=== PATIENT | female | born 1990 | race Caucasian/White ===

== ENCOUNTER 2017-09-21 23:15 | Inpatient (IN) | payer OTHER ==
[~2017-09-21] VITALS: Ht 157.5 cm; Wt 76.2 kg
[2017-09-22] VITALS (169 sets, daily range): BP systolic 87–144; BP diastolic 43–84; PULSE 68–143; RESP 15–18; TEMP 97.9–98.7; O2SAT 97–100
[2017-09-22 00:04] LABS: BLOOD, URINE NEG (NEG); COMMENT (UR) CULT NOT INDICATED; CULTURE IF INDICATED CULT NOT INDICATED; GLUCOSE,URINE NEG (NEG); KETONE, URINE NEG (NEG); MUCUS URINE FEW /lpf (OCC); NITRITE,URINE NEG (NEG); SQUAMOUS EPITHELIAL CELL URINE <1 /hpf (0-5); URINE COLOR LIGHT-YELLOW (YELLW/STRAW)
[2017-09-22] MEDS ORDERED: LACTATED RINGER'S 1000 ML INJ 1,000 ML IV PRN (00:14)
--- NOTE | 2017-09-22 00:14 | PD ---
HPI Chief Complaint Contractions since exam this morning Date Seen: Sep 22, 2017 Time Seen: 00:11 Travel History International Travel<30 Days: No Contact w/Intl Traveler<30Days: No Known Affected Area: No History of Present Illness HPI 27-year-old who is at 39 weeks and 6 days comes in complaining of contractions since her examination this morning. She was in the office and was noted to be 4 cm and since that exam has been yuan most of the today which worsened this evening and is now every 5 minutes. Denies vaginal bleeding discharge or rupture membranes. She is group B strep negative and denies any antepartum complications Weeks Gestation: 39 (39.6) Para: 0 : 1 History Past Medical History Medical History: Denies Significant Hx Past Surgical History Narrative Surgical Bilateral inguinal hernia repair Family History Family History: Negative Social History Alcohol Use: No Tobacco Use: No Substance Abuse: No Allergies-Medications (Allergen,Severity, Reaction): Coded Allergies: No Known Drug Allergies (Verified Allergy, Unknown, 09/21/17) Review of Systems Except as stated in HPI: all other systems reviewed are Neg Physical Exam Narrative GENERAL: Well-nourished, well-developed patient. SKIN: Warm and dry. HEAD: Normocephalic and atraumatic. EYES: No scleral icterus. No injection or drainage. ENT: No nasal drainage noted. Mucous membranes pink. Airway patent. NECK: Supple, trachea midline. No JVD. CARDIOVASCULAR: Regular rate and rhythm without murmurs, gallops, or rubs. RESPIRATORY: Breath sounds equal bilaterally. No accessory muscle use. ABDOMEN/GI: Abdomen soft, non-tender, bowel sounds present, no rebound, no guarding Gravid to [40-] weeks size Fundal Height: [-] GENITOURINARY: External Genitalia: intact and normal in appearance BUS glands: [-Normal] Cervix: [-Mid position] Dilatation: [5-] Effacement: [-80] Station: [-2-] Presentation: [-Vertex] Membranes: [intact ] Uterine Contractions: [Every 3-5-] FHT's: Category: [1-] Baseline: [-140] Reactive: [Moderate-] Variability: [-Moderate] Decels: [-Absent] EXTREMITIES: No cyanosis or edema. BACK: Nontender without obvious deformity. No CVA tenderness. NEUROLOGICAL: Awake and alert. Motor and sensory grossly within normal limits. Five out of 5 muscle strength in all muscle groups. Normal speech. Data Data Vital Signs Reviewed: Yes Orders Orders Urinalysis - C+S If Indicated (09/21/17 23:53) Drug Screen, Random Urine (09/21/17 23:53) Group B Strep: Negative Labs Laboratory Tests Test 09/21/17 23:38 Urine Color LIGHT-YELLOW Urine Turbidity CLEAR Urine pH 7.0 Urine Specific [place] 1.013 Urine Protein NEG Urine Glucose (UA) NEG Urine Ketones NEG Urine Occult Blood NEG Urine Nitrite NEG Urine Bilirubin NEG Urine Urobilinogen LESS THAN 2.0 Urine Leukocyte Esterase TRACE Urine RBC 1 Urine WBC 2 Urine Squamous Epithelial Cells <1 Urine Mucus FEW Microscopic Urinalysis Comment CULT NOT INDICATED MDM Medical Record Reviewed: Yes Plan 27-year-old at 39 weeks and 6 days with G group B strep negative in active labor Admit to labor delivery Diagnosis Diagnosis: Primary Impression: 39 weeks gestation of Additional Impression: Irregular uterine contractions Nadege Perez MD Sep 22, 2017 00:14
[2017-09-22] MEDS ORDERED: CITRIC ACID-SODIUM CITRATE LIQ 30 ML UDC PO SCH (00:15)
[2017-09-22] MEDS ORDERED: LIDOCAINE HCL 1% 50 ML VIAL I-DERMAL PRN (00:15)
[2017-09-22] MEDS ORDERED: LIDOCAINE HCL 1% 50 ML VIAL INFIL PRN (00:15)
[2017-09-22] MEDS ORDERED: SODIUM CHLORID 0.9% 500 ML INJ 500 ML IV PRN (00:15)
[2017-09-22] MEDS ORDERED: OXYTOCIN 30 UNITS-500ML PREMIX 500 ML IV ONE (00:15)
[2017-09-22] MEDS ORDERED: MINERAL OIL 10 ML VIAL TOPICAL PRN (00:15)
[2017-09-22] MEDS ORDERED: SODIUM CHLOR 0.9% 1000 ML INJ 1,000 ML IV PRN (00:34)
[2017-09-22] MEDS: ONDANSETRON HCL 4 MG/2 ML VIAL IV PUSH PRN ×3 (00:39→15:04)
[2017-09-22] MEDS: LACTATED RINGER'S 1000 ML INJ 1,000 ML IV SCH ×2 (00:40→15:05)
[2017-09-22 00:43] LABS: AUTOMATED NEUTROPHIL # 9.8 TH/MM3 (1.8-7.7); BASOPHIL # 0.1 TH/MM3 (0-0.2); BASOPHIL % 0.5 % (0.0-2.0); EOSINOPHIL # 0.1 TH/MM3 (0-0.4); EOSINOPHIL % 0.6 % (0.0-4.0); HEMATOCRIT 41.1 % (35.0-46.0); HEMO FLAGS DIFF FINAL; LYMPH % 16.5 % (9.0-44.0); LYMPHOCYTE # 2.1 TH/MM3 (1.0-4.8); MEAN CELL VOLUME 89.6 FL (80.0-100.0); MEAN CORPUSCULAR HEMOGLOBIN 30.1 PG (27.0-34.0); MEAN CORPUSCULAR HGB CONC 33.5 % (32.0-36.0); MONO % 7.4 % (0.0-8.0); PLATELET COUNT 309 TH/MM3 (150-450); RED BLOOD COUNT 4.59 MIL/MM3 (4.00-5.30); WHITE BLOOD COUNT 13.1 TH/MM3 (4.0-11.0)
[2017-09-22] MEDS ORDERED: Prenatal Vitamin PO (00:44)
[2017-09-22] MEDS ORDERED: PROT40TA PO (00:44)
[2017-09-22] MEDS ORDERED: COLA100C5 PO (00:44)
[2017-09-22] MEDS ORDERED: fentaNYL 2MCG-BUPIV 0.125% INJ 100 ML ONE (03:36)
[2017-09-22] MEDS ORDERED: DO NOT ADMINISTER ANTICOAGULANTS PRN (04:00)
[2017-09-22] MEDS ORDERED: fentaNYL 2MCG-BUPIV 0.125% 100 ML EPIDURAL SCH (04:00)
[2017-09-22] MEDS ORDERED: NO SYSTEM NARCOTICS PRN (04:00)
[2017-09-22] MEDS ORDERED: ePHEDrine/NS 25 MG/5 ML SYRINGE IV PUSH PRN (04:15)
[2017-09-22] MEDS ORDERED: OXYTOCIN 30 UNITS/NS 500ML PREMIX IV SCH (09:00)
[2017-09-22] MEDS ORDERED: OXYTOCIN 30 UNITS-500ML PREMIX 500 ML IV SCH (15:00)
[2017-09-22] MEDS ORDERED: ACETAMINOPHEN 325 MG TAB PO PRN (15:00)
[2017-09-22] MEDS ORDERED: ONDANSETRON ODT 4 MG TAB PO PRN (15:00)
[2017-09-22] MEDS ORDERED: ALUMINUM/MAGNESIUM/SIMETH 30 ML CUP PO PRN (15:00)
[2017-09-22] MEDS ORDERED: DISCONTINUE ALL PREVIOUS ORDERS ONE (15:00)
[2017-09-22] MEDS ORDERED: oxyCODONE/ACETAMINOPHEN 5 MG/325 MG 2 TABS PO PRN (15:00)
[2017-09-22] MEDS ORDERED: BENZOCAINE 20% TOPICAL SPRAY 60 ML CAN TOPICAL PRN (15:00)
[2017-09-22] MEDS: oxyCODONE/ACETAMINOPHEN 5 MG/325 MG TAB PO PRN ×2 (15:05→22:01)
[2017-09-22] MEDS: WITCH HAZEL 50%/GLYCERIN 12.5% 40 PAD JAR TOPICAL PRN (15:05)
[2017-09-22] MEDS ORDERED: DIPHTH/TETANUS/ACEL PERTUSSIS (BOOSTER) 0.5 ML VIAL/PFS IM ONE (16:00)
[2017-09-22] MEDS ORDERED: MEASLES, MUMPS, RUBELLA VACCINE 0.5 ML VIAL SQ ONE (16:00)
[2017-09-22] MEDS: IBUPROFEN 800 MG TAB PO PRN (17:57)
[2017-09-22] MEDS ORDERED: ZOLPIDEM TARTRATE 5 MG TAB PO PRN (21:00)
[2017-09-23] MEDS: oxyCODONE/ACETAMINOPHEN 5 MG/325 MG TAB PO PRN ×3 (02:28→18:41)
[2017-09-23] MEDS: DOCUSATE SODIUM 50 MG/SENNA 8.6 MG TAB PO PRN ×2 (02:31→18:43)
[2017-09-23] MEDS: IBUPROFEN 800 MG TAB PO PRN ×3 (02:31→18:41)
[2017-09-23 08:00] VITALS: BP 113/69; PULSE 90; RESP 18; TEMP 97.5; O2SAT 99
--- NOTE | 2017-09-23 13:18 | HHI.OB ---
Subjective Post Day: 1 Remarks Pt doing well Objective Vitals/I&O Vital Signs Date Time Temp Pulse Resp B/P (MAP) Pulse Ox O2 Delivery O2 Flow Rate FiO2 09/23/17 08:00 18 09/23/17 08:00 97.5 90 113/69 (84) 99 09/22/17 20:00 97.9 88 18 112/69 (83) 97 09/22/17 17:10 98.3 09/22/17 17:10 100 18 127/72 (90) 09/22/17 15:00 104 127/74 (91) 09/22/17 14:45 103 116/76 (89) 09/22/17 14:45 17 09/22/17 14:34 98.2 09/22/17 14:30 17 09/22/17 14:30 105 124/75 (91) 09/22/17 14:15 109 124/70 (88) 09/22/17 14:15 18 09/22/17 14:00 112 121/62 (81) 09/22/17 14:00 18 09/22/17 13:57 111 120/64 (82) Objective Remarks GENERAL: Well-nourished, well-developed patient. CARDIOVASCULAR: Regular rate and rhythm without murmurs, gallops, or rubs. RESPIRATORY: Breath sounds equal bilaterally. No accessory muscle use. ABDOMEN/GI: Abdomen soft, non-tender. Fundus: Firm, non-tender at umbilicus. GENITOURINARY: Light to moderate bleeding. EXTREMITIES: No cyanosis or edema, non-tender, without signs of DVT. Medications and IVs Current Medications Medications (Trade) Dose Ordered Sig/Jose Route Start Time Stop Time Status Last Admin Fentanyl/ Bupivacaine HCl 100 ml @ 0 mls/hr TITRATE EPIDURAL 09/22/17 04:00 09/22/17 05:02 (Tylenol) 650 mg Q4H PRN PO 09/22/17 15:00 (Percocet 5-325 Mg) 1 tab Q4H PRN PO 09/22/17 15:00 09/23/17 10:32 (Percocet 5-325 Mg) 2 tab Q4H PRN PO 09/22/17 15:00 (Americaine 20% Top Spr) 1 spray Q4H PRN TOPICAL 09/22/17 15:00 09/22/17 15:05 (Tucks Pads) 1 applic Q6H PRN TOPICAL 09/22/17 15:00 09/22/17 15:05 (Elizabeth-Colace) 2 tab Q12H PRN PO 09/22/17 15:00 09/23/17 02:31 (Ambien) 5 mg HS PRN PO 09/22/17 21:00 (Mag-Al Plus Susp Liq) 15 ml Q8H PRN PO 09/22/17 15:00 (Zofran Odt) 4 mg Q6H PRN PO 09/22/17 15:00 (Motrin) 800 mg Q8H PRN PO 09/22/17 15:15 09/23/17 10:32 Assessment/Plan Assessment and Plan PPSD # 1 s/p doing well, routine care Olinda Briones MD Sep 23, 2017 13:18
[2017-09-23 19:50] VITALS: BP 124/79; PULSE 79; RESP 18
[2017-09-23 19:51] VITALS: TEMP 98.2
[2017-09-24] MEDS: IBUPROFEN 800 MG TAB PO PRN ×2 (03:09→10:59)
--- NOTE | 2017-09-24 06:20 | HHI.OB ---
Subjective Post Day: 2 Remarks doing well infant in NICU for swelling of head Objective Vitals/I&O Vital Signs Date Time Temp Pulse Resp B/P (MAP) Pulse Ox O2 Delivery O2 Flow Rate FiO2 09/23/17 19:51 98.2 09/23/17 19:50 79 18 124/79 (94) 09/23/17 08:00 18 09/23/17 08:00 97.5 90 113/69 (84) 99 Objective Remarks GENERAL: Well-nourished, well-developed patient. ABDOMEN/GI: Abdomen soft, non-tender. Fundus: Firm, non-tender at umbilicus. GENITOURINARY: Light to moderate bleeding. EXTREMITIES: No cyanosis or edema, non-tender, without signs of DVT. Medications and IVs Current Medications Medications (Trade) Dose Ordered Sig/Jose Route Start Time Stop Time Status Last Admin Fentanyl/ Bupivacaine HCl 100 ml @ 0 mls/hr TITRATE EPIDURAL 09/22/17 04:00 09/22/17 05:02 (Tylenol) 650 mg Q4H PRN PO 09/22/17 15:00 (Percocet 5-325 Mg) 1 tab Q4H PRN PO 09/22/17 15:00 09/23/17 18:41 (Percocet 5-325 Mg) 2 tab Q4H PRN PO 09/22/17 15:00 (Americaine 20% Top Spr) 1 spray Q4H PRN TOPICAL 09/22/17 15:00 09/22/17 15:05 (Tucks Pads) 1 applic Q6H PRN TOPICAL 09/22/17 15:00 09/22/17 15:05 (Elizabeth-Colace) 2 tab Q12H PRN PO 09/22/17 15:00 09/23/17 18:43 (Ambien) 5 mg HS PRN PO 09/22/17 21:00 (Mag-Al Plus Susp Liq) 15 ml Q8H PRN PO 09/22/17 15:00 (Zofran Odt) 4 mg Q6H PRN PO 09/22/17 15:00 (Motrin) 800 mg Q8H PRN PO 09/22/17 15:15 09/24/17 03:09 Assessment/Plan Problem List: (1) Spontaneous vaginal delivery ICD Codes: O80 - Encounter for full-term uncomplicated delivery Assessment and Plan PPD #2 doing well ok to dc home Danny Cali MD Sep 24, 2017 06:20
[2017-09-24] MEDS ORDERED: OXYC1TAB63 PO (06:21)
--- NOTE | 2017-09-24 06:22 | HHI.DCPOC ---
Discharge Care Plan Diagnosis: (1) Spontaneous vaginal delivery Report Symptoms to Your Doctor -Temperature above 100.5 degrees -Redness, of incision or excessive or foul smelling drainage -Unusual pain or calf pain -Increased vaginal bleeding -Painful or difficulty urinating -Feelings of extreme sadness or anxiety after 2 weeks Goals to Promote Your Health * To prevent worsening of your condition and complications * To maintain your health at the optimal level Directions to Meet Your Goals Take your medications as prescribed Follow your dietary instruction Follow activity as directed Ensure plenty of rest for recovery Drink fluids for hydration Keep your appointments as scheduled Take your immunizations and boosters as scheduled If your symptoms worsen call your PCP, if no PCP go to Urgent Care Center or Emergency Room Smoking is Dangerous to Your Health. Avoid second hand smoke Call the 24-hour crisis hotline for domestic abuse at Danny Cali MD Sep 24, 2017 06:22
--- NOTE | 2017-09-24 06:25 | HHI.DS ---
Admission Date Sep 22, 2017 at 00:11 Discharge Date: Sep 24, 2017 Admitting Diagnosis Diagnosis: (1) Spontaneous vaginal delivery Diagnosis: Principal ICD Codes: O80 - Encounter for full-term uncomplicated delivery Vaginal Delivery: Normal Infant: Single Brief History 27-year-old who is at 39 weeks and 6 days comes in complaining of contractions since her examination this morning. She was in the office and was noted to be 4 cm and since that exam has been yuan most of the today which worsened this evening and is now every 5 minutes. Denies vaginal bleeding discharge or rupture membranes. She is group B strep negative and denies any antepartum complications Hospital Course doing well ready for dc home Pt Condition on Discharge: Good Discharge Disposition: Discharge Home Discharge Instructions Diet Instructions: As Tolerated, No Restrictions Activities You Can Perform: Regular-No Restrictions, Pelvic Rest Activities to Avoid: Driving for 24 hrs Follow up Referrals: MONORAIL HOOKER - 2 Weeks @ [facility] with Olinda Briones MD PCP Follow-up New Medications: Oxycodone HCl/Acetaminophen (Oxycodone-Acetaminophen 5-325) 5 Mg-325 Mg Tablet 2 TAB PO Q4H PRN for PAIN SCALE 6 TO 10, #20 TAB Continued Medications: Docusate Sodium (Colace) 100 Mg Capsule 1 CAPLET PO DAILY Pantoprazole (Protonix) 40 Mg Tab 40 MG PO DAILY for Reflux, #30 TAB 0 Refills [ Vitamin] () 1 TAB PO DAILY Danny Cali MD Sep 24, 2017 06:25
[2017-09-24 08:00] VITALS: BP 127/72; PULSE 85; RESP 18; TEMP 97.9; O2SAT 99
[2017-09-24] MEDS: oxyCODONE/ACETAMINOPHEN 5 MG/325 MG TAB PO PRN (11:00)
[2017-09-24] MEDS: WITCH HAZEL 50%/GLYCERIN 12.5% 40 PAD JAR TOPICAL PRN (13:48)
== END 2017-09-24 13:35 | disposition home or self-care (01) | DRG 775 ==
LOC: HOBED 23:15 → H2EA 09-22 00:11 → H1EA 09-22 16:57
PROVIDERS: ADMIT Obstetrics & Gynecology; ATTEND Obstetrics & Gynecology
PROC: 10E0XZZ Delivery of Products of Conception, External Approach (ICD-10-PCS; principal; 2017-09-22)
DX: O80 Encounter for full-term uncomplicated delivery (principal); Z37.0 Single live birth; Z3A.39 39 weeks gestation of pregnancy
CPT/HCPCS: 59025; 80307; 81001; 85025; 86900; 86901; J2405; J2590; J3010; J7120